=== PATIENT | female | born 1945 | race Two or more races ===

== ENCOUNTER 2017-01-14 20:36 | Inpatient (IN) | payer MEDICARE, OTHER ==
[~2017-01-14] VITALS: Ht 152.4 cm; Wt 69.4 kg
[~2017-01-14 20:36] MED LIST: ALLOPURINOL100 M1 ORAL; AMIODARONE HCL200 MG ORAL; ASPIR 8181 MG ORAL; FUROSEMIDE40 MG ORAL; METFORMIN HCL500 M1 ORAL; METOPROLOL TART25 MG ORAL
[2017-01-14] MEDS ORDERED: Nitroglycerin 2% oint pkt TOPIC ONE (21:00)
[2017-01-14] MEDS ORDERED: Vancomycin 1 GM in NS 275 ML IV ONE (21:15)
[2017-01-14] MEDS ORDERED: Cefepime HCl 1 GM in NS 55 ML IV SCH (21:15)
--- NOTE | 2017-01-14 21:29 | Emergency Room Report ---
History of Present Illness General Chief Complaint: Chest Pain Source: Patient Present Illness HPI Patient is a 71-year-old female presented after increased fever as well as chest discomfort. Patient had recently had a procedure done at [facility] for a cardiac cath. She reported some intervention done to her right groin. She reports having increased chest pain as well as palpitations. She reports having some shortness of breath. This had improved after oxygen with EMS. Allergies: Coded Allergies: No Known Allergies (Unverified , 01/14/17) Patient History Past Medical History: see triage record Last Menstrual Period: n/a Reviewed Nursing Documentation: PMH: Agreed, PSxH: Agreed Nursing Documentation-PMH Past Medical History: No Stated History Review of Systems All Other Systems: negative except mentioned in HPI Physical Exam Vital Signs Date Time Temp Pulse Resp B/P Pulse Ox O2 Delivery O2 Flow Rate FiO2 01/14/17 20:24 102.0 90 20 130/92 98 Non-Rebreather Sp02 EP Interpretation: reviewed, normal General Appearance: normal inspection, alert, GCS 15, mild distress Head: atraumatic ENT: normal ENT inspection, hearing grossly normal, normal voice Neck: normal inspection, full range of motion, supple, no bony tend Respiratory: normal inspection, lungs clear, normal breath sounds, no respiratory distress, no retraction, no wheezing Cardiovascular #1: regular rate, rhythm, no edema Gastrointestinal: normal inspection, normal bowel sounds, non tender, soft, no guarding, no hernia Genitourinary: no CVA tenderness Musculoskeletal: normal inspection, back normal, normal range of motion Neurologic: normal inspection, alert, oriented x3, responsive, information technology program manager III-XII nml as tested, speech normal Psychiatric: normal inspection, judgement/insight normal, mood/affect normal Skin: normal inspection, normal color, no rash Medical Decision Making Diagnostic Impression: Primary Impression: Febrile illness, acute Additional Impressions: Chest pain CHF (congestive heart failure) Atrial flutter UTI (urinary tract infection) ER Course Patient presented for fever. Differential diagnosis included but was not limited to acute coronary syndrome, pulmonary embolism, pneumonia, aortic dissection, shingles, pneumothorax, aortic dissection, esophageal rupture, pericarditis. Because of complexity of patient's case laboratory testing and imaging studies were ordered. The patient was noted to have a fever. She was started on IV antibiotics after culture pain. EKG interpreted by me showed atrial flutter with variable block with a rate of 104. The patient was given breathing treatment by EMS and was also given metoprolol for rate control. Patient was noted to have elevated BNP on testing. Initial troponin was negative. Patient was discussed with Dr. craig. I attempted to contact the patient's jalousie installer Dr. Malagon. Labs Test 01/14/17 21:50 01/14/17 21:55 White Blood Count 10.6 K/UL (4.8-10.8) Red Blood Count 4.24 M/UL (4.20-5.40) Hemoglobin 12.1 G/DL (12.0-16.0) Hematocrit 36.2 % (37.0-47.0) Mean Corpuscular Volume 85 FL (80-99) Mean Corpuscular Hemoglobin 28.5 PG (27.0-31.0) Mean Corpuscular Hemoglobin Concent 33.4 G/DL (32.0-36.0) Red Cell Distribution Width 13.4 % (11.6-14.8) Platelet Count 186 K/UL (150-450) Mean Platelet Volume 7.9 FL (6.5-10.1) Neutrophils (%) (Auto) 79.8 % (45.0-75.0) Lymphocytes (%) (Auto) 10.9 % (20.0-45.0) Monocytes (%) (Auto) 7.8 % (1.0-10.0) Eosinophils (%) (Auto) 0.7 % (0.0-3.0) Basophils (%) (Auto) 0.9 % (0.0-2.0) Sodium Level 131 mEQ/L (135-145) Potassium Level 4.6 mEQ/L (3.4-4.9) Chloride Level 96 mEQ/L (98-107) Carbon Dioxide Level 21 mEQ/L (20-30) Anion Gap 14 (5-15) Blood Urea Nitrogen 19 mg/dL (7-23) Creatinine 1.0 mg/dL (0.5-0.9) Estimat Glomerular Filtration Rate mL/min (>60) Glucose Level 124 mg/dL (74-106) Lactic Acid Level 1.20 mmol/L (0.66-2.22) Calcium Level 8.9 mg/dL (8.6-10.2) Total Bilirubin 0.8 mg/dL (0.0-1.2) Aspartate Amino Transf (AST/SGOT) 86 U/L (5-40) Alanine Aminotransferase (ALT/SGPT) 98 U/L (3-33) Alkaline Phosphatase 121 U/L (35-104) Total Creatine Kinase 38 U/L (26-140) Creatine Kinase MB < 1.5 ng/mL (< 3.8) Creatine Kinase MB Relative Index Troponin I < 0.30 ng/mL (<=0.30) Pro-B-Type Natriuretic Peptide 6286 pg/mL (0-125) Total Protein 6.4 g/dL (6.6-8.7) Albumin 3.7 g/dL (3.5-5.2) Globulin 2.7 g/dL Albumin/Globulin Ratio 1.3 (1.0-2.7) Urine Color Yellow Urine Appearance Clear Urine pH 6 (4.5-8.0) Urine Specific [place] 1.015 (1.005-1.035) Urine Protein 3+ (NEGATIVE) Urine Glucose (UA) Negative (NEGATIVE) Urine Ketones Negative (NEGATIVE) Urine Occult Blood 4+ (NEGATIVE) Urine Nitrite Negative (NEGATIVE) Urine Bilirubin Negative (NEGATIVE) Urine Urobilinogen Normal MG/DL (0.0-1.0) Urine Leukocyte Esterase 1+ (NEGATIVE) Urine RBC 10-15 /HPF (0 - 2) Urine WBC 5-10 /HPF (0 - 2) Urine Squamous Epithelial Cells Few /LPF (NONE/OCC) Urine Bacteria Moderate /HPF (NONE) Labs Test 01/14/17 21:50 EKG Diagnostic Results Rate: tachycardiac Rhythm: other - atrial flutter variable block Last Vital Signs Date Time Temp Pulse Resp B/P Pulse Ox O2 Delivery O2 Flow Rate FiO2 01/14/17 20:24 102.0 90 20 130/92 98 Non-Rebreather Status: unchanged Disposition: ADMITTED INPATIENT Condition: Abdifatah Childress Jan 14, 2017 21:29
[2017-01-14] MEDS ORDERED: Metoprolol 5mg/5ml Inj IVP SCH (21:30)
[2017-01-14 22:01] LABS: BASOPHILS % (AUTO) 0.9 % (0.0-2.0); EOSINOPHILS % (AUTO) 0.7 % (0.0-3.0); LYMPHOCYTES % (AUTO) 10.9 % (20.0-45.0); MEAN CORPUSCULAR HEMOGLOBIN 28.5 PG (27.0-31.0); MEAN CORPUSCULAR HGB CONC 33.4 G/DL (32.0-36.0); MEAN CORPUSCULAR VOLUME 85 FL (80-99); MEAN PLATELET VOLUME 7.9 FL (6.5-10.1); MONOCYTES % (AUTO) 7.8 % (1.0-10.0); NEUTROPHILS % (AUTO) 79.8 % (45.0-75.0); PLATELET COUNT 186 K/UL (150-450); RED BLOOD COUNT 4.24 M/UL (4.20-5.40); RED CELL DISTRIBUTION WIDTH 13.4 % (11.6-14.8); WHITE BLOOD COUNT 10.6 K/UL (4.8-10.8)
[2017-01-14 22:15] LABS: APPEARANCE,URINE CLEAR; KETONES,URINE NEGATIVE (NEGATIVE); LEUKOCYTE ESTERASE ,URINE 1+ (NEGATIVE); NITRITE,URINE NEGATIVE (NEGATIVE); PH,URINE 6 (4.5-8.0); PROTEIN,URINE 3+ (NEGATIVE); UROBILINOGEN,URINE NORMAL MG/DL (0.0-1.0)
[2017-01-14] MEDS ORDERED: Cefepime 1gm vial ONE (22:15)
[2017-01-14 22:25] LABS: TROPONIN I < 0.30 ng/mL (<=0.30)
[2017-01-14 22:29] LABS: ALANINE AMINOTRANSFERASE 98 U/L (3-33); ALBUMIN/GLOBULIN RATIO 1.3 (1.0-2.7); ANION GAP 14 (5-15); ASPARTATE AMINO TRANSFERASE 86 U/L (5-40); CALCIUM 8.9 mg/dL (8.6-10.2); CARBON DIOXIDE 21 mEQ/L (20-30); CHLORIDE 96 mEQ/L (98-107); HEMOLYSIS 6; POTASSIUM 4.6 mEQ/L (3.4-4.9); SODIUM 131 mEQ/L (135-145); TOTAL PROTEIN 6.4 g/dL (6.6-8.7)
[2017-01-14] MEDS ORDERED: Vancomycin 1gm inj IVPB ONE (22:32)
[2017-01-14 22:39] LABS: CKMB < 1.5 ng/mL (< 3.8)
[2017-01-14 22:51] LABS: BACTERIA,URINE MODERATE /HPF; SQUAMOUS EPITHELIAL CELL,UR FEW /LPF (NONE/OCC)
[2017-01-15] VITALS (8 sets, daily range): BP systolic 87–110; BP diastolic 46–70
[2017-01-15] MEDS ORDERED: ASPIR 8181 MG ORAL ×2 (03:29→07:13)
[2017-01-15] MEDS ORDERED: TEMAZEPAM15 MG ORAL (03:29)
[2017-01-15] MEDS ORDERED: ARMOUR THYROID30 M1 PO (03:29)
[2017-01-15] MEDS ORDERED: ALLOPURINOL100 M1 ORAL (03:29)
[2017-01-15] MEDS ORDERED: LYRICA75 M1 ORAL (03:29)
[2017-01-15] MEDS ORDERED: FERROUS SULFAT325 MG ORAL (03:29)
[2017-01-15] MEDS: NovoLOG Insulin Flexpen SUBQ SCH ×4 (06:30→20:44)
[2017-01-15] MEDS ORDERED: Acetaminophen 500mg (ES) tab ORAL PRN (08:00)
[2017-01-15 08:19] LABS: BASOPHILS % (AUTO) 0.9 % (0.0-2.0); EOSINOPHILS % (AUTO) 1.6 % (0.0-3.0); LYMPHOCYTES % (AUTO) 16.8 % (20.0-45.0); MEAN CORPUSCULAR HEMOGLOBIN 29.2 PG (27.0-31.0); MEAN CORPUSCULAR HGB CONC 33.8 G/DL (32.0-36.0); MEAN CORPUSCULAR VOLUME 86 FL (80-99); MEAN PLATELET VOLUME 7.8 FL (6.5-10.1); MONOCYTES % (AUTO) 11.2 % (1.0-10.0); NEUTROPHILS % (AUTO) 69.5 % (45.0-75.0); PLATELET COUNT 203 K/UL (150-450); RED BLOOD COUNT 3.87 M/UL (4.20-5.40); RED CELL DISTRIBUTION WIDTH 13.2 % (11.6-14.8); WHITE BLOOD COUNT 8.7 K/UL (4.8-10.8)
[2017-01-15 08:38] LABS: ALANINE AMINOTRANSFERASE 82 U/L (3-33); ALBUMIN/GLOBULIN RATIO 1.4 (1.0-2.7); ANION GAP 15 (5-15); ASPARTATE AMINO TRANSFERASE 51 U/L (5-40); CARBON DIOXIDE 25 mEQ/L (20-30); CHLORIDE 99 mEQ/L (98-107); CREATININE 1.2 mg/dL (0.5-0.9); HEMOLYSIS 4; POTASSIUM 3.5 mEQ/L (3.4-4.9); SODIUM 139 mEQ/L (135-145); TOTAL PROTEIN 6.3 g/dL (6.6-8.7)
[2017-01-15 08:52] LABS: BILIRUBIN,DIRECT 0.2 mg/dL (0.1-0.3)
[2017-01-15] MEDS ORDERED: Furosemide 40mg tab ORAL SCH (09:00)
[2017-01-15] MEDS ORDERED: Metoprolol 25mg tab ORAL SCH (09:00)
[2017-01-15] MEDS ORDERED: Allopurinol 100mg Tab ORAL SCH (09:00)
[2017-01-15] MEDS: Aspirin EC 81mg tab ORAL SCH ×2 (09:00→18:00)
[2017-01-15] MEDS: Amiodarone 200mg tab ORAL SCH (09:02)
[2017-01-15] MEDS: Heparin 5000 units/ml inj SUBQ SCH ×3 (09:04→20:56)
--- NOTE | 2017-01-15 11:31 | Diagnostic Imaging Report ---
Indication: Dyspnea Comparison: 09/18/12 A single view chest radiograph was obtained. Findings: Interstitial edema is suspected with blunting of the right costophrenic angle. The heart is enlarged. Bones are slightly osteopenic in appearance. Impression: Evidence of mild interstitial edema. Suspected small right pleural effusion
--- NOTE | 2017-01-15 11:54 | Consultation ---
Consult Note Consult Note ID DIC # [id number] SOFIE MORELAND M.D. Jan 15, 2017 11:54
--- NOTE | 2017-01-15 14:15 | History and Physical ---
History of Present Illness General Date patient seen: Jan 15, 2017 Reason for Hospitalization: Chest Pain Present Illness HPI 71 year old female with hx of childhood rheumatic fever and mitral insufficiency with recent clipping of mitral valve at , hx of smoking, DM and hypothyroid, presented to [facility] with CC of fever, cough, dyspnea, and thick phlegm. C/O chest pain and tightness Allergies: Coded Allergies: No Known Allergies (Unverified , 01/14/17) Medication History Scheduled Allopurinol* (Allopurinol*), 100 MG ORAL THREE TIMES A WEEK, (Reported) Amiodarone Hcl* (Cordarone*), 200 MG ORAL DAILY, (Reported) Aspirin* (Aspir 81*), 81 MG ORAL TWICE A WEEK, (Reported) Ferrous Sulfate* (Ferrous Sulfate*), 325 MG ORAL DAILY, (Reported) Furosemide* (Lasix*), 40 MG ORAL TWICE A DAY, (Reported) Metformin Hcl* (Metformin Hcl*), 500 MG ORAL TWICE A DAY, (Reported) Metoprolol Tartrate* (Metoprolol Tartrate*), 25 MG ORAL EVERY 12 HOURS, ( Reported) Pregabalin* (Lyrica*), 75 MG ORAL QHS, (Reported) Temazepam (Temazepam*), 15 MG ORAL BEDTIME, (Reported) Thyroid,Pork ([place] Thyroid), 45 MG PO DAILY, (Reported) Discontinued Medications Allopurinol* (Allopurinol*), 100 MG ORAL DAILY, (Reported) Discontinued Reason: Medication dose changed Aspirin* (Aspir 81*), 81 MG ORAL DAILY, (Reported) Discontinued Reason: Medication dose changed Aspirin* (Aspir 81*), 81 MG ORAL TWICE A DAY, (Reported) Discontinued Reason: Medication dose changed Patient History Healthcare decision maker Resuscitation status Full Code Advanced Directive on File Past Medical/Surgical History Past Medical/Surgical History: (1) Rheumatic mitral insufficiency (2) Hypothyroidism (3) Diabetes mellitus (4) Atrial flutter (5) CHF (congestive heart failure) Review of Systems All Other Systems: negative except mentioned in HPI Physical Exam General Appearance: WD/WN Lines, tubes and drains: peripheral HEENT: normocephalic, atraumatic Neck: non-tender, normal alignment Respiratory/Chest: chest wall non-tender, lungs clear Breasts: no masses Cardiovascular/Chest: normal peripheral pulses Genitourinary/Rectal: normal genital exam Extremities: normal range of motion, non-tender Skin Exam: normal pigmentation Neurologic: electronic commerce specialist II-XII grossly normal Last 24 Hour Vital Signs Date Time Temp Pulse Resp B/P Pulse Ox O2 Delivery O2 Flow Rate FiO2 01/15/17 12:00 95 01/15/17 11:26 96.9 89 18 92/54 99 Nasal Cannula 2.0 01/15/17 09:00 61 87/52 01/15/17 08:00 79 01/15/17 07:45 97.7 74 18 87/52 99 Room Air 01/15/17 04:00 86 01/15/17 03:53 98.6 102 18 103/62 95 Nasal Cannula 01/15/17 02:39 97.0 66 18 98/53 95 Nasal Cannula 01/15/17 02:30 97.0 01/15/17 01:34 Nasal Cannula 2.0 01/15/17 01:31 99.0 84 21 100/52 97 2.0 01/15/17 00:14 98.0 87 110/70 97 Nasal Cannula 2.0 01/14/17 21:00 110/87 01/14/17 20:24 102.0 90 20 130/92 98 Non-Rebreather Intake and Output 01/14/17 01/15/17 19:00 07:00 Intake Total 585 ml Balance 585 ml Intake Oral 200 ml IV Total 385 ml Laboratory Tests Test 01/14/17 21:50 01/14/17 21:55 01/15/17 07:25 White Blood Count 10.6 K/UL (4.8-10.8) 8.7 K/UL (4.8-10.8) Red Blood Count 4.24 M/UL (4.20-5.40) 3.87 M/UL (4.20-5.40) L Hemoglobin 12.1 G/DL (12.0-16.0) 11.3 G/DL (12.0-16.0) L Hematocrit 36.2 % (37.0-47.0) L 33.4 % (37.0-47.0) L Mean Corpuscular Volume 85 FL (80-99) 86 FL (80-99) Mean Corpuscular Hemoglobin 28.5 PG (27.0-31.0) 29.2 PG (27.0-31.0) Mean Corpuscular Hemoglobin Concent 33.4 G/DL (32.0-36.0) 33.8 G/DL (32.0-36.0) Red Cell Distribution Width 13.4 % (11.6-14.8) 13.2 % (11.6-14.8) Platelet Count 186 K/UL (150-450) 203 K/UL (150-450) Mean Platelet Volume 7.9 FL (6.5-10.1) 7.8 FL (6.5-10.1) Neutrophils (%) (Auto) 79.8 % (45.0-75.0) H 69.5 % (45.0-75.0) Lymphocytes (%) (Auto) 10.9 % (20.0-45.0) L 16.8 % (20.0-45.0) L Monocytes (%) (Auto) 7.8 % (1.0-10.0) 11.2 % (1.0-10.0) H Eosinophils (%) (Auto) 0.7 % (0.0-3.0) 1.6 % (0.0-3.0) Basophils (%) (Auto) 0.9 % (0.0-2.0) 0.9 % (0.0-2.0) Sodium Level 131 mEQ/L (135-145) L 139 mEQ/L (135-145) Potassium Level 4.6 mEQ/L (3.4-4.9) 3.5 mEQ/L (3.4-4.9) Chloride Level 96 mEQ/L (98-107) L 99 mEQ/L (98-107) Carbon Dioxide Level 21 mEQ/L (20-30) 25 mEQ/L (20-30) Anion Gap 14 (5-15) 15 (5-15) Blood Urea Nitrogen 19 mg/dL (7-23) 24 mg/dL (7-23) H Creatinine 1.0 mg/dL (0.5-0.9) H 1.2 mg/dL (0.5-0.9) H Estimat Glomerular Filtration Rate mL/min (>60) mL/min (>60) Glucose Level 124 mg/dL (74-106) H 129 mg/dL (74-106) H Lactic Acid Level 1.20 mmol/L (0.66-2.22) Calcium Level 8.9 mg/dL (8.6-10.2) 9.0 mg/dL (8.6-10.2) Total Bilirubin 0.8 mg/dL (0.0-1.2) 1.1 mg/dL (0.0-1.2) Aspartate Amino Transf (AST/SGOT) 86 U/L (5-40) H 51 U/L (5-40) H Alanine Aminotransferase (ALT/SGPT) 98 U/L (3-33) H 82 U/L (3-33) H Alkaline Phosphatase 121 U/L (35-104) H 102 U/L (35-104) Total Creatine Kinase 38 U/L (26-140) Creatine Kinase MB < 1.5 ng/mL (< 3.8) Creatine Kinase MB Relative Index Troponin I < 0.30 ng/mL (<=0.30) Pro-B-Type Natriuretic Peptide 6286 pg/mL (0-125) H 6162 pg/mL (0-125) H Total Protein 6.4 g/dL (6.6-8.7) L 6.3 g/dL (6.6-8.7) L Albumin 3.7 g/dL (3.5-5.2) 3.7 g/dL (3.5-5.2) Globulin 2.7 g/dL 2.6 g/dL Albumin/Globulin Ratio 1.3 (1.0-2.7) 1.4 (1.0-2.7) Urine Color Yellow Urine Appearance Clear Urine pH 6 (4.5-8.0) Urine Specific [place] 1.015 (1.005-1.035) Urine Protein 3+ (NEGATIVE) H Urine Glucose (UA) Negative (NEGATIVE) Urine Ketones Negative (NEGATIVE) Urine Occult Blood 4+ (NEGATIVE) H Urine Nitrite Negative (NEGATIVE) Urine Bilirubin Negative (NEGATIVE) Urine Urobilinogen Normal MG/DL (0.0-1.0) Urine Leukocyte Esterase 1+ (NEGATIVE) H Urine RBC 10-15 /HPF (0 - 2) H Urine WBC 5-10 /HPF (0 - 2) H Urine Squamous Epithelial Cells Few /LPF (NONE/OCC) Urine Bacteria Moderate /HPF (NONE) H Direct Bilirubin 0.2 mg/dL (0.1-0.3) Microbiology Date/Time Source Procedure Growth Status 01/14/17 21:55 Urine,Clean Catch Urine Culture - Preliminary Resulted Height (Feet): 5 Height (Inches): 0.00 Weight (Pounds): 153 Medications Current Medications Medications (Trade) Dose Ordered Sig/Jaz Route PRN Reason Start Time Stop Time Status Last Admin Dose Admin Acetaminophen (Tylenol) 500 mg Q4H PRN ORAL Mild Pain/Temp > 100.5 01/15/17 08:00 02/14/17 07:59 Allopurinol (Zyloprim) 100 mg THREE TIMES A WEEK ORAL 01/16/17 09:00 02/15/17 08:59 Amiodarone HCl (Cordarone) 200 mg DAILY ORAL 01/15/17 09:00 02/14/17 08:59 01/15/17 09:02 Aspirin (Ecotrin) 81 mg TWICE A DAY ORAL 01/15/17 09:00 02/14/17 08:59 Cefepime HCl/ Dextrose (Maxipime/D5W) 110 ml @ 220 mls/hr Q24H IVPB 01/15/17 15:00 01/22/17 14:59 Dextrose (Dextrose 50%) STAT PRN IV Hypoglycemia 01/14/17 23:30 02/13/17 23:29 Furosemide 100 mg/ Dextrose 110 ml @ 11 mls/hr Q10H IV 01/15/17 19:00 02/14/17 18:59 Heparin Sodium (Porcine) (Heparin 5000 units/ml) 5,000 units EVERY 12 HOURS SUBQ 01/15/17 09:00 02/14/17 08:59 01/15/17 09:04 Insulin Aspart (NovoLOG) BEFORE MEALS AND HS SUBQ 01/15/17 06:30 02/14/17 06:29 Metoprolol Tartrate (Lopressor) 25 mg EVERY 12 HOURS ORAL 01/15/17 09:00 02/14/17 08:59 Pregabalin (Lyrica) 75 mg QHS ORAL 01/15/17 21:00 02/14/17 20:59 Temazepam (Restoril) 15 mg BEDTIME ORAL 01/15/17 21:00 01/22/17 20:59 Thyroid 45 mg 45 mg DAILY@1200 ORAL 01/15/17 12:00 02/14/17 11:59 01/15/17 12:01 Vancomycin HCl 1 ea 1 ea DAILY PRN MISC Per rx protocol 01/15/17 12:00 02/14/17 11:59 Vancomycin HCl/ Dextrose (Vancomycin/D5W) 275 ml @ 183.708 mls/hr Q24H IVPB 01/15/17 21:00 01/20/17 20:59 Assessment/Plan Problem List: (1) Pneumonia ICD Codes: J18.9 - Pneumonia, unspecified organism SNOMED: 335085387 (2) Atrial flutter ICD Codes: I48.92 - Unspecified atrial flutter SNOMED: 2194186 (3) Hypothyroidism ICD Codes: E03.9 - Hypothyroidism, unspecified SNOMED: 96193694 (4) Diabetes mellitus ICD Codes: E11.9 - Type 2 diabetes mellitus without complications SNOMED: 87016963 (5) Rheumatic mitral insufficiency ICD Codes: I05.1 - Rheumatic mitral insufficiency SNOMED: 09632593 Assessment/Plan iv abx check sputum check echo heart rate controlled, Anticoagulation? sliding scale diabetic diet MICHAEL GARCIA Jan 15, 2017 14:15
--- NOTE | 2017-01-15 14:33 | Diagnostic Imaging Report ---
Indication: Dyspnea Comparison: 01/14/2017 A single view chest radiograph was obtained. Findings: Some interstitial opacities are to present but there is probable improvement. There is suspicion of a small right pleural effusion again noted. Heart is enlarged. Impression: Probable mild interstitial edema. Probable improvement since the last day
[2017-01-15] MEDS: Cefepime HCl 2 GM in D5W 110 ML IVPB SCH (15:35)
--- NOTE | 2017-01-15 17:56 | Cardiology Progress Note ---
Assessment/Plan Assessment/Plan chf acute sytolic afib recurrent s/p cardioversion at [facility] his of haseeb cm resolved MR now s/p darell clip recently dm hyperlipidemia fever at admission uti no obstructive diseas on cath in 11/2016 was in afib at dc form [facility] now in afib need continue diuretics resusm xarelto that she was taking before more time on amiod and subsequently reattempt at cardioversion in future however ia am highly doubtful that she may remain n sinus so rate control for sure should be attempted need iv abx per id await blood cx [id number] Objective Last 24 Hour Vital Signs Date Time Temp Pulse Resp B/P Pulse Ox O2 Delivery O2 Flow Rate FiO2 01/15/17 16:00 97 01/15/17 15:26 97.3 97 18 92/46 99 Nasal Cannula 2.0 01/15/17 12:00 95 01/15/17 11:26 96.9 89 18 92/54 99 Nasal Cannula 2.0 01/15/17 09:00 61 87/52 01/15/17 08:00 79 01/15/17 07:45 97.7 74 18 87/52 99 Room Air 01/15/17 04:00 86 01/15/17 03:53 98.6 102 18 103/62 95 Nasal Cannula 01/15/17 02:39 97.0 66 18 98/53 95 Nasal Cannula 01/15/17 02:30 97.0 01/15/17 01:34 Nasal Cannula 2.0 01/15/17 01:31 99.0 84 21 100/52 97 2.0 01/15/17 00:14 98.0 87 110/70 97 Nasal Cannula 2.0 01/14/17 21:00 110/87 01/14/17 20:24 102.0 90 20 130/92 98 Non-Rebreather Intake and Output 01/14/17 01/15/17 19:00 07:00 Intake Total 585 ml Balance 585 ml Intake Oral 200 ml IV Total 385 ml Laboratory Tests Test 01/14/17 21:50 01/14/17 21:55 01/15/17 07:25 White Blood Count 10.6 K/UL (4.8-10.8) 8.7 K/UL (4.8-10.8) Red Blood Count 4.24 M/UL (4.20-5.40) 3.87 M/UL (4.20-5.40) L Hemoglobin 12.1 G/DL (12.0-16.0) 11.3 G/DL (12.0-16.0) L Hematocrit 36.2 % (37.0-47.0) L 33.4 % (37.0-47.0) L Mean Corpuscular Volume 85 FL (80-99) 86 FL (80-99) Mean Corpuscular Hemoglobin 28.5 PG (27.0-31.0) 29.2 PG (27.0-31.0) Mean Corpuscular Hemoglobin Concent 33.4 G/DL (32.0-36.0) 33.8 G/DL (32.0-36.0) Red Cell Distribution Width 13.4 % (11.6-14.8) 13.2 % (11.6-14.8) Platelet Count 186 K/UL (150-450) 203 K/UL (150-450) Mean Platelet Volume 7.9 FL (6.5-10.1) 7.8 FL (6.5-10.1) Neutrophils (%) (Auto) 79.8 % (45.0-75.0) H 69.5 % (45.0-75.0) Lymphocytes (%) (Auto) 10.9 % (20.0-45.0) L 16.8 % (20.0-45.0) L Monocytes (%) (Auto) 7.8 % (1.0-10.0) 11.2 % (1.0-10.0) H Eosinophils (%) (Auto) 0.7 % (0.0-3.0) 1.6 % (0.0-3.0) Basophils (%) (Auto) 0.9 % (0.0-2.0) 0.9 % (0.0-2.0) Sodium Level 131 mEQ/L (135-145) L 139 mEQ/L (135-145) Potassium Level 4.6 mEQ/L (3.4-4.9) 3.5 mEQ/L (3.4-4.9) Chloride Level 96 mEQ/L (98-107) L 99 mEQ/L (98-107) Carbon Dioxide Level 21 mEQ/L (20-30) 25 mEQ/L (20-30) Anion Gap 14 (5-15) 15 (5-15) Blood Urea Nitrogen 19 mg/dL (7-23) 24 mg/dL (7-23) H Creatinine 1.0 mg/dL (0.5-0.9) H 1.2 mg/dL (0.5-0.9) H Estimat Glomerular Filtration Rate mL/min (>60) mL/min (>60) Glucose Level 124 mg/dL (74-106) H 129 mg/dL (74-106) H Lactic Acid Level 1.20 mmol/L (0.66-2.22) Calcium Level 8.9 mg/dL (8.6-10.2) 9.0 mg/dL (8.6-10.2) Total Bilirubin 0.8 mg/dL (0.0-1.2) 1.1 mg/dL (0.0-1.2) Aspartate Amino Transf (AST/SGOT) 86 U/L (5-40) H 51 U/L (5-40) H Alanine Aminotransferase (ALT/SGPT) 98 U/L (3-33) H 82 U/L (3-33) H Alkaline Phosphatase 121 U/L (35-104) H 102 U/L (35-104) Total Creatine Kinase 38 U/L (26-140) Creatine Kinase MB < 1.5 ng/mL (< 3.8) Creatine Kinase MB Relative Index Troponin I < 0.30 ng/mL (<=0.30) Pro-B-Type Natriuretic Peptide 6286 pg/mL (0-125) H 6162 pg/mL (0-125) H Total Protein 6.4 g/dL (6.6-8.7) L 6.3 g/dL (6.6-8.7) L Albumin 3.7 g/dL (3.5-5.2) 3.7 g/dL (3.5-5.2) Globulin 2.7 g/dL 2.6 g/dL Albumin/Globulin Ratio 1.3 (1.0-2.7) 1.4 (1.0-2.7) Urine Color Yellow Urine Appearance Clear Urine pH 6 (4.5-8.0) Urine Specific [place] 1.015 (1.005-1.035) Urine Protein 3+ (NEGATIVE) H Urine Glucose (UA) Negative (NEGATIVE) Urine Ketones Negative (NEGATIVE) Urine Occult Blood 4+ (NEGATIVE) H Urine Nitrite Negative (NEGATIVE) Urine Bilirubin Negative (NEGATIVE) Urine Urobilinogen Normal MG/DL (0.0-1.0) Urine Leukocyte Esterase 1+ (NEGATIVE) H Urine RBC 10-15 /HPF (0 - 2) H Urine WBC 5-10 /HPF (0 - 2) H Urine Squamous Epithelial Cells Few /LPF (NONE/OCC) Urine Bacteria Moderate /HPF (NONE) H Direct Bilirubin 0.2 mg/dL (0.1-0.3) Microbiology Date/Time Source Procedure Growth Status 01/14/17 21:55 Urine,Clean Catch Urine Culture - Preliminary Resulted ASHWINI WOODS Jan 15, 2017 17:56
--- NOTE | 2017-01-15 18:00 | Consultation ---
DATE OF CONSULTATION: INFECTIOUS DISEASE CONSULTATION CONSULTING PHYSICIAN: Teo Schuler M.D. REFERRING PHYSICIAN: Ruddy Thomas M.D. REASON FOR CONSULTATION: Evaluation of the patient for fever, pneumonia, antibiotic management. HISTORY OF PRESENT ILLNESS: The patient is a 71-year-old female with multiple medical problems who underwent a cardiac cath procedure in the [facility] and subsequently the patient underwent a valve repair procedure (the patient does not remember the exact nature of the procedure, however, she contributes to repair of the mitral valve). The patient was admitted to this medical center with fever, shortness of breath and cough. Infectious Disease consultation has been requested for further evaluation of the patient's antibiotic management. PAST MEDICAL HISTORY: 1. History of atrial flutter. 2. History of CHF. 3. Hypertension. 4. History of breast reduction surgery. 5. Gout. 6. Borderline diabetes. 7. Hypothyroidism. 8. Depression. 9. Anemia. 10. Status post cardiac cath and valve repair procedure at [facility] ten days prior to admission. MEDICATIONS: The patient received one dose of vancomycin and cefepime in the emergency room. ALLERGIES: No known drug allergies. SOCIAL HISTORY: Negative for alcohol, drug abuse or smoking. FAMILY HISTORY: Noncontributing. REVIEW OF SYSTEMS: HEENT: No recent change in vision or hearing. Pulmonary: As mentioned above. Cardiovascular: As mentioned above. Gastrointestinal/Abdomen: No nausea or vomiting. Genitourinary: No dysuria. Musculoskeletal: No pain in extremities. PHYSICAL EXAMINATION: VITAL SIGNS: Temperature 102 degrees, pulse 86, respiratory rate 18 and blood pressure 192/54. HEENT: Mild pale conjunctivae. No icterus. NECK: No lymphadenopathy. CHEST: Coarse breathing sounds. HEART: S1 and S2. ABDOMEN: Soft and nontender. EXTREMITIES: No cyanosis. NEUROLOGIC: Awake. LABORATORY AND DIAGNOSTIC DATA: White blood cell 8.7, hemoglobin 11.2 and platelet 203,000. Urinalysis shows 5-10 white blood cells. AST and ALT mildly elevated. Alkaline phosphatase within normal range. BNP over 6000. Cardiac enzyme unremarkable. Chest x-ray showed mild interstitial edema. ASSESSMENT: The patient is a 71-year-old female who has been recently hospitalized in the hospital and has multiple medical problems, who came with 1. Fever. 2. Cough. 3. Shortness of breath. 4. History of healthcare associated pneumonia. 5. Rule out bacteremia. PLAN: 1. We will continue the patient on vancomycin and cefepime. 2. Monitor blood culture. 3. Monitor sputum and urine culture. 4. Monitor chest x-ray. 5. Monitor liver function tests. 6. Based on the patient's clinical course and labs, we will do further recommendation. Thank you, Dr. Thomas, for allowing me to participate in the care of this patient. I will follow the patient with you during this hospitalization. Teo Schuler M.D. DR: SUMEET JOB#: [id number] CC:
[2017-01-15] MEDS: Metoprolol 25mg tab ORAL SCH (20:41)
[2017-01-15] MEDS: Lyrica 75mg cap ORAL SCH (20:42)
[2017-01-15] MEDS: Xarelto 10mg tab ORAL SCH (20:57)
[2017-01-15] MEDS: Vancomycin 750mg/D5W 275ml IVPB SCH ×2 (21:59)
[2017-01-16] VITALS: BP 115/55
--- NOTE | 2017-01-16 01:00 | Consultation ---
DATE OF CONSULTATION: 01/15/2017 CARDIOLOGY CONSULTATION CONSULTING PHYSICIAN: Vin Nova M.D. REFERRING PHYSICIAN: Ruddy Thomas M.D. REASON FOR REFERRAL: Congestive heart failure. HISTORY OF PRESENT ILLNESS: This is an elderly female who has had history of mitral regurgitation. Apparently, she has undergone a mitral clip as well as a direct current cardioversion recently at [facility] and was subsequently discharged home after urgently had been admitted with failed medical treatment. She was discharged last Saturday. She did well for few days, was told not to take one of the medications that she was taking before, not clear which one that was as of last Saturday, and a few days later as of this past Saturday, she started getting more shortness of breath and dyspnea on exertion and eventually was not able to sleep because of shortness of air, even had to sit up to be able to breathe at night. She really has not had any chest pain. She has occasional palpitations, for which she has been admitted to the hospital. Apparently, she was brought here to the emergency department at [facility] with diagnosis and has been admitted to the hospital and has received some diuretics, to which she has responded. PAST MEDICAL HISTORY: History of rheumatic heart disease with sleep apnea, atrial fibrillation, hypothyroid, anxiety, nonischemic cardiomyopathy with ejection fraction of 40% cardiomyopathy. This revealed mitral regurgitation, chronic systolic and diastolic heart failure, and pulmonary edema with restricted coarctation of posterior mitral valve leaflet that has subsequently been corrected. She has diabetes. She has had low blood pressure before. No history of heart attack. No cancer. No stroke. No hepatitis or tuberculosis. No asthma or emphysema. No ulcers. No kidney problems, liver problems, or thyroid problems noted. The discharge diagnoses indicated that the patient has a history of borderline diabetes, lumbar stenosis, and hyperlipidemia, but she underwent a cardiac catheterization recently at [facility] in November that showed no evidence of coronary disease. ALLERGIES: She is not allergic to any medications. SOCIAL HISTORY: She used to smoke. She quit that approximately 16 years ago. Does not drink alcoholic beverages. Lives at home by herself. REVIEW OF SYSTEMS: Gastrointestinal: She has had some bouts of nausea and vomiting that resolved. Genitourinary: Negative. Pulmonary: Cough and wheezing. Constitutional: Negative. Neurologic: Negative. PHYSICAL EXAMINATION: GENERAL: Shows to be an elderly female in no apparent respiratory distress, but she looks comfortable. NECK: Supple. No jugular venous distention. She has crackles at the left base. CARDIAC: Irregularly irregular. No heaves, thrills, or gallops noted. ABDOMEN: Soft and nontender. Positive bowel sounds. EXTREMITIES: There is no clubbing, cyanosis, nor is there any edema. LABORATORY AND DIAGNOSTIC DATA: Her last EKG at [facility] on 12/29/2016 showed sinus rhythm with T-wave inversions in aVL and flat T-waves in lead I. EKG at the present time shows atrial fibrillation and ventricular response of 104. Her blood tests, white count 8.7, hemoglobin 11.3, and platelet count of 203,000. Sodium is 139, potassium 3.5, chloride 99, bicarbonate 25, BUN of 24, creatinine 1.2, and glucose of 129. Lactic acid 1.2. AST and ALT are 51 and 82. ProBNP is 6100. Troponin less than 0.03. Urinalysis shows 10 to 15 RBC, 5 to 10 WBCs. A chest x-ray performed yesterday shows mild interstitial edema and right pleural effusion, small. Repeat EKG shows probable mild since the last day. ASSESSMENT: 1. Congestive heart failure. 2. Mitral regurgitation, status post mitral clip. 3. Atrial fibrillation, recurrent. 4. Pleural effusion. 5. Rheumatic heart disease history. 6. Borderline diabetes. PLAN: Dr. Thomas, this patient was seen in cardiac consultation. The patient's atrial fibrillation is not significantly rapid. Nevertheless, she has had some diuretics to which she has responded. Of note, it appears that the patient is being maintained on amiodarone therapy and beta-blockers at home and it does not appear that she has received any diuretics at the hospital at [facility]. I think she should be continued back on diuretics. At the present time, she should be on anticoagulation for stroke prevention. She had been on Xarelto before that will be continued until she is followed up by Dr. Malagon. Because of her recurrence of her atrial fibrillation despite the recent cardioversion, I think that she may be better off having longer period of time on amiodarone prior to repeat attempt at cardioversion and she may in fact flip back on her own once she is treated for heart failure. I will follow the patient here and recommend further treatment as necessary. An echocardiogram should be performed if not done so for evaluation of her LV function as that had improved previously. Vin Nova M.D. DR: DERRICK JOB#: [id number] CC:
[2017-01-16] MEDS: NovoLOG Insulin Flexpen SUBQ SCH ×4 (06:30→21:32)
[2017-01-16 08:00] VITALS: BP 86/48
[2017-01-16 08:26] LABS: BASOPHILS % (AUTO) 0.9 % (0.0-2.0); EOSINOPHILS % (AUTO) 7.4 % (0.0-3.0); LYMPHOCYTES % (AUTO) 16.8 % (20.0-45.0); MEAN CORPUSCULAR HGB CONC 33.5 G/DL (32.0-36.0); MEAN CORPUSCULAR VOLUME 87 FL (80-99); MEAN PLATELET VOLUME 7.4 FL (6.5-10.1); MONOCYTES % (AUTO) 11.2 % (1.0-10.0); NEUTROPHILS % (AUTO) 63.7 % (45.0-75.0); PLATELET COUNT 208 K/UL (150-450); RED BLOOD COUNT 4.08 M/UL (4.20-5.40); RED CELL DISTRIBUTION WIDTH 13.7 % (11.6-14.8); WHITE BLOOD COUNT 6.7 K/UL (4.8-10.8)
[2017-01-16 08:49] LABS: ANION GAP 14 (5-15); CALCIUM 9.2 mg/dL (8.6-10.2); CARBON DIOXIDE 29 mEQ/L (20-30); CHLORIDE 94 mEQ/L (98-107); CREATININE 1.3 mg/dL (0.5-0.9); HEMOLYSIS 1; SODIUM 137 mEQ/L (135-145)
[2017-01-16] MEDS: Metoprolol 25mg tab ORAL SCH ×2 (09:00→23:21)
[2017-01-16] MEDS: Amiodarone 200mg tab ORAL SCH (09:00)
[2017-01-16] MEDS ORDERED: Allopurinol 100mg Tab ORAL SCH (09:00)
[2017-01-16 09:04] LABS: POTASSIUM 2.7 mEQ/L (3.4-4.9)
[2017-01-16] MEDS: Xarelto 10mg tab ORAL SCH (10:23)
[2017-01-16] MEDS: Aspirin EC 81mg tab ORAL SCH ×2 (10:23→18:28)
[2017-01-16] MEDS: Heparin 5000 units/ml inj SUBQ SCH ×2 (10:32→21:31)
[2017-01-16 12:00] VITALS: BP 91/56
--- NOTE | 2017-01-16 14:00 | Pulmonology Progress Note ---
Assessment/Plan Problems: (1) Pneumonia (2) Atrial flutter (3) Hypothyroidism (4) Diabetes mellitus (5) Rheumatic mitral insufficiency Assessment/Plan afebrile continue abx dc lasix, bun/creatinine rising, BNP decreased by half echo report pending heart rate controlled. f/u by cardiolgoy Subjective ROS Limited/Unobtainable: No Interval Events: less cough Allergies: Coded Allergies: No Known Allergies (Unverified , 01/14/17) Objective Last 24 Hour Vital Signs Date Time Temp Pulse Resp B/P Pulse Ox O2 Delivery O2 Flow Rate FiO2 01/16/17 12:00 91 01/16/17 12:00 97.3 70 21 91/56 95 Nasal Cannula 2.0 01/16/17 09:00 65 88/45 01/16/17 08:00 97.2 77 21 86/48 98 Nasal Cannula 2.0 01/16/17 04:33 90 01/16/17 00:00 98.1 74 20 115/55 Room Air 01/15/17 20:41 82 100/57 01/15/17 20:00 98.4 87 22 100/52 99 Room Air 01/15/17 20:00 97 01/15/17 16:00 97 01/15/17 15:26 97.3 97 18 92/46 99 Nasal Cannula 2.0 Intake and Output 01/15/17 01/16/17 19:00 07:00 Intake Total 571 ml 396.000 ml Output Total 900 ml Balance 571 ml -504.000 ml Intake Oral 560 ml IV Total 11 ml 396.000 ml Output Urine Total 900 ml # Voids 4 3 General Appearance: WD/WN HEENT: normocephalic, anicteric Respiratory/Chest: chest wall non-tender, normal breath sounds Cardiovascular: normal peripheral pulses, normal rate Abdomen: normal bowel sounds, soft, non tender Genitourinary: normal external genitalia Extremities: no cyanosis Skin: no rash, no lesions Microbiology Date/Time Source Procedure Growth Status 01/14/17 22:00 Blood Blood Culture - Preliminary NO GROWTH AFTER 24 HOURS Resulted 01/14/17 21:50 Blood Blood Culture - Preliminary NO GROWTH AFTER 24 HOURS Resulted 01/15/17 14:00 Sputum Gram Stain - Final Resulted 01/15/17 14:00 Sputum Sputum Culture - Preliminary NO GROWTH AFTER 24 HOURS Resulted 01/14/17 21:55 Urine,Clean Catch Urine Culture - Preliminary Gram Negative Bacillus 1 Resulted Laboratory Tests 01/16/17 07:30: White Blood Count 6.7, Red Blood Count 4.08L, Hemoglobin 11.8L, Hematocrit 35.3L , Mean Corpuscular Volume 87, Mean Corpuscular Hemoglobin 29.0, Mean Corpuscular Hemoglobin Concent 33.5, Red Cell Distribution Width 13.7, Platelet Count 208, Mean Platelet Volume 7.4, Neutrophils (%) (Auto) 63.7, Lymphocytes (% ) (Auto) 16.8L, Monocytes (%) (Auto) 11.2H, Eosinophils (%) (Auto) 7.4H, Basophils (%) (Auto) 0.9, Sodium Level 137, Potassium Level 2.7*L, Chloride Level 94L, Carbon Dioxide Level 29, Anion Gap 14, Blood Urea Nitrogen 29H, Creatinine 1.3H, Estimat Glomerular Filtration Rate , Glucose Level 93, Calcium Level 9.2, Pro-B-Type Natriuretic Peptide 3110H Current Medications Medications (Trade) Dose Ordered Sig/Jaz Route PRN Reason Start Time Stop Time Status Last Admin Dose Admin Acetaminophen (Tylenol) 500 mg Q4H PRN ORAL Mild Pain/Temp > 100.5 01/15/17 08:00 02/14/17 07:59 Allopurinol (Zyloprim) 100 mg THREE TIMES A WEEK ORAL 01/16/17 09:00 02/15/17 08:59 01/16/17 10:23 Amiodarone HCl (Cordarone) 200 mg DAILY ORAL 01/15/17 09:00 02/14/17 08:59 01/15/17 09:02 Aspirin (Ecotrin) 81 mg TWICE A DAY ORAL 01/15/17 09:00 02/14/17 08:59 01/16/17 10:23 Cefepime HCl/ Dextrose (Maxipime/D5W) 110 ml @ 220 mls/hr Q24H IVPB 01/15/17 15:00 01/22/17 14:59 01/15/17 15:35 Dextrose (Dextrose 50%) STAT PRN IV Hypoglycemia 01/14/17 23:30 02/13/17 23:29 Furosemide 100 mg/ Dextrose 110 ml @ 11 mls/hr Q10H IV 01/15/17 19:00 02/14/17 18:59 01/16/17 05:03 Heparin Sodium (Porcine) (Heparin 5000 units/ml) 5,000 units EVERY 12 HOURS SUBQ 01/15/17 09:00 02/14/17 08:59 01/16/17 10:32 Insulin Aspart (NovoLOG) BEFORE MEALS AND HS SUBQ 01/15/17 06:30 02/14/17 06:29 01/15/17 20:44 Metoprolol Tartrate (Lopressor) 50 mg EVERY 12 HOURS ORAL 01/15/17 21:00 02/14/17 20:59 01/15/17 20:41 Pregabalin (Lyrica) 75 mg QHS ORAL 01/15/17 21:00 02/14/17 20:59 01/15/17 20:42 Rivaroxaban (Xarelto) 20 mg DAILY ORAL 01/15/17 19:30 02/14/17 19:29 01/16/17 10:23 Temazepam (Restoril) 15 mg BEDTIME ORAL 01/15/17 21:00 01/22/17 20:59 01/15/17 20:41 Thyroid 45 mg 45 mg DAILY@1200 ORAL 01/15/17 12:00 02/14/17 11:59 01/16/17 12:58 Vancomycin HCl 1 ea 1 ea DAILY PRN MISC Per rx protocol 01/15/17 12:00 02/14/17 11:59 Vancomycin HCl/ Dextrose (Vancomycin/D5W) 275 ml @ 183.708 mls/hr Q24H IVPB 01/15/17 21:00 01/20/17 20:59 01/15/17 21:59 MICHAEL GARCIA Jan 16, 2017 14:00
[2017-01-16] MEDS ORDERED: KCl 10% 40mEq/30ml liquid ORAL ONE (15:10)
[2017-01-16] MEDS: Vancomycin 750mg/D5W 275ml IVPB SCH ×6 (15:14→21:27)
[2017-01-16] MEDS: Cefepime HCl 2 GM in D5W 110 ML IVPB SCH (15:21)
[2017-01-16 16:00] VITALS: BP 97/58
--- NOTE | 2017-01-16 16:11 | Cardiology Report ---
APPROVED REPORT EXAM: Two-dimensional and M-mode echocardiogram with Doppler and color Doppler. INDICATION Atrial Fibrillation M-Mode DIMENSIONS IVSd1.2 (0.7-1.1cm)Left Atrium (MM)5.3 (1.6-4.0cm) LVDd3.5 (3.5-5.6cm)Aortic Root2.8 (2.0-3.7cm) PWd1.6 (0.7-1.1cm)Aortic Cusp Exc.1.7 (1.5-2.0cm) LVDs2.5 (2.5-4.0cm) PWs2.0 cm Normal left ventricular chamber size, systolic function and wall motion. Left ventricular ejection fraction estimated to be 55-60 %. Mild left ventricular hypertrophy. No evidence of pericardial effusion. Moderate left atrial enlargement. Mild right atrial enlargement. Right ventricular chamber size is within normal limits. Focal aortic valve sclerosis with adequate cusp excursion. Mitral valve clip noted with normal function. Mitral annulus and aortic root calcification. Pulmonic valve not well visualized. Normal tricuspid valve structure. IVC at normal size with physiologic collapse. A color flow and spectral Doppler study was performed and revealed: Mild aortic regurgitation. Mild-moderate mitral regurgitation( eccentric jet). Peak mitral valve diastolic gradient of 14 mmHg and a mean gradient of 5 mmHg. Cannot determine left ventricular diastolic function by mitral diastolic velocities due to atrial fibrillation. Mild to moderate tricuspid regurgitation. Tricuspid systolic velocities suggests peak right ventricular systolic pressure of 36 mmHg, consistent with mild pulmonary hypertension. 2 jets of moderate pulmonic regurgitation noted.
--- NOTE | 2017-01-16 16:22 | Cardiology Report ---
APPROVED REPORT EKG Measurement Heart [id number] Atrial fibrillation Nonspecific T wave abnormality Abnormal ECG
--- NOTE | 2017-01-16 16:44 | Cardiology Report ---
APPROVED REPORT EKG Measurement Heart [id number] Atrial flutter with variable AV block Abnormal ECG
--- NOTE | 2017-01-16 17:22 | Infectious Diseases Prog Note ---
Assessment/Plan Assessment/Plan ASSESSMENT: The patient is a 71-year-old female w Fever , SP Shortness of breath History of healthcare associated pneumonia Rule out bacteremia UCx : GNR :asymptomatic ?JUANA , Cr increasing Atrial flutter. CHF. Hypertension. History of breast reduction surgery. Gout. Borderline diabetes. Depression. Anemia. Status post cardiac cath and mitral valve clip at [facility] ten days prior to admission PLAN: cont on vancomycin and cefepime d# 2( May DC Vanco if Cr increased further ) Monitor blood culture Monitor sputum and urine culture. Monitor chest x-ray. Monitor liver function tests Echo :P. Subjective Allergies: Coded Allergies: No Known Allergies (Unverified , 01/14/17) Subjective comfortable Objective Vital Signs Last 24 Hour Vital Signs Date Time Temp Pulse Resp B/P Pulse Ox O2 Delivery O2 Flow Rate FiO2 01/16/17 16:00 97.7 80 20 97/58 99 Room Air 01/16/17 12:00 91 01/16/17 12:00 97.3 70 21 91/56 95 Nasal Cannula 2.0 01/16/17 09:00 65 88/45 01/16/17 08:00 97.2 77 21 86/48 98 Nasal Cannula 2.0 01/16/17 04:33 90 01/16/17 00:00 98.1 74 20 115/55 Room Air 01/15/17 20:41 82 100/57 01/15/17 20:00 98.4 87 22 100/52 99 Room Air 01/15/17 20:00 97 Height (Feet): 5 Height (Inches): 0.00 Weight (Pounds): 153 HEENT: atraumatic Respiratory/Chest: no respiratory distress Cardiovascular: regularly irregular Abdomen: no organomegaly Microbiology Date/Time Source Procedure Growth Status 01/14/17 22:00 Blood Blood Culture - Preliminary NO GROWTH AFTER 24 HOURS Resulted 01/14/17 21:50 Blood Blood Culture - Preliminary NO GROWTH AFTER 24 HOURS Resulted 01/15/17 14:00 Sputum Gram Stain - Final Resulted 01/15/17 14:00 Sputum Sputum Culture - Preliminary NO GROWTH AFTER 24 HOURS Resulted 01/14/17 21:55 Urine,Clean Catch Urine Culture - Preliminary Gram Negative Bacillus 1 Resulted Laboratory Tests Test 01/16/17 07:30 White Blood Count 6.7 K/UL (4.8-10.8) Red Blood Count 4.08 M/UL (4.20-5.40) L Hemoglobin 11.8 G/DL (12.0-16.0) L Hematocrit 35.3 % (37.0-47.0) L Mean Corpuscular Volume 87 FL (80-99) Mean Corpuscular Hemoglobin 29.0 PG (27.0-31.0) Mean Corpuscular Hemoglobin Concent 33.5 G/DL (32.0-36.0) Red Cell Distribution Width 13.7 % (11.6-14.8) Platelet Count 208 K/UL (150-450) Mean Platelet Volume 7.4 FL (6.5-10.1) Neutrophils (%) (Auto) 63.7 % (45.0-75.0) Lymphocytes (%) (Auto) 16.8 % (20.0-45.0) L Monocytes (%) (Auto) 11.2 % (1.0-10.0) H Eosinophils (%) (Auto) 7.4 % (0.0-3.0) H Basophils (%) (Auto) 0.9 % (0.0-2.0) Sodium Level 137 mEQ/L (135-145) Potassium Level 2.7 mEQ/L (3.4-4.9) *L Chloride Level 94 mEQ/L (98-107) L Carbon Dioxide Level 29 mEQ/L (20-30) Anion Gap 14 (5-15) Blood Urea Nitrogen 29 mg/dL (7-23) H Creatinine 1.3 mg/dL (0.5-0.9) H Estimat Glomerular Filtration Rate mL/min (>60) Glucose Level 93 mg/dL (74-106) Calcium Level 9.2 mg/dL (8.6-10.2) Pro-B-Type Natriuretic Peptide 3110 pg/mL (0-125) H Current Medications Medications (Trade) Dose Ordered Sig/Jaz Route PRN Reason Start Time Stop Time Status Last Admin Dose Admin Acetaminophen (Tylenol) 500 mg Q4H PRN ORAL Mild Pain/Temp > 100.5 01/15/17 08:00 02/14/17 07:59 Allopurinol (Zyloprim) 100 mg THREE TIMES A WEEK ORAL 01/16/17 09:00 02/15/17 08:59 01/16/17 10:23 Amiodarone HCl (Cordarone) 200 mg DAILY ORAL 01/15/17 09:00 02/14/17 08:59 01/15/17 09:02 Aspirin (Ecotrin) 81 mg TWICE A DAY ORAL 01/15/17 09:00 02/14/17 08:59 01/16/17 10:23 Cefepime HCl/ Dextrose (Maxipime/D5W) 110 ml @ 220 mls/hr Q24H IVPB 01/15/17 15:00 01/22/17 14:59 01/16/17 15:21 Dextrose (Dextrose 50%) STAT PRN IV Hypoglycemia 01/14/17 23:30 02/13/17 23:29 Heparin Sodium (Porcine) (Heparin 5000 units/ml) 5,000 units EVERY 12 HOURS SUBQ 01/15/17 09:00 02/14/17 08:59 01/16/17 10:32 Insulin Aspart (NovoLOG) BEFORE MEALS AND HS SUBQ 01/15/17 06:30 02/14/17 06:29 01/15/17 20:44 Metoprolol Tartrate (Lopressor) 50 mg EVERY 12 HOURS ORAL 01/15/17 21:00 02/14/17 20:59 01/15/17 20:41 Potassium Chloride (KCl 10% 40mEq Oral solution) 40 meq ONCE ONCE NG 01/16/17 19:00 01/16/17 19:01 Pregabalin (Lyrica) 75 mg QHS ORAL 01/15/17 21:00 02/14/17 20:59 01/15/17 20:42 Rivaroxaban (Xarelto) 20 mg DAILY ORAL 01/15/17 19:30 02/14/17 19:29 01/16/17 10:23 Temazepam (Restoril) 15 mg BEDTIME ORAL 01/15/17 21:00 01/22/17 20:59 01/15/17 20:41 Thyroid 45 mg 45 mg DAILY@1200 ORAL 01/15/17 12:00 02/14/17 11:59 01/16/17 12:58 Vancomycin HCl 1 ea 1 ea DAILY PRN MISC Per rx protocol 01/15/17 12:00 02/14/17 11:59 Vancomycin HCl/ Dextrose (Vancomycin/D5W) 275 ml @ 183.708 mls/hr Q24H IVPB 01/15/17 21:00 01/20/17 20:59 01/15/17 21:59 SOFIE MORELAND M.D. Jan 16, 2017 17:22
[2017-01-16] MEDS ORDERED: KCl 10% 40mEq/30ml liquid NG ONE (19:00)
--- NOTE | 2017-01-16 19:45 | Cardiology Progress Note ---
Assessment/Plan Assessment/Plan chf acute sytolic afib recurrent s/p cardioversion at [facility] his of haseeb cm resolved MR now s/p darell clip recently dm hyperlipidemia fever at admission uti no obstructive disease on cath in 11/2016 was in afib at dc form [facility] now in afib bp lwer liekly due to diuretic may be alos due to loss oa trial activity is on xarelto more time on amiod and subsequently reattempt at cardioversion in future however ia am highly doubtful that she may remain n sinus so rate control for sure should be attempted need iv abx per id blood cx are neg still dc iv lasix may need some fluid if bp remain low home soon once clear by id Subjective Cardiovascular: Denies: chest pain, irregular heart rate, lightheadedness, palpitations, syncope Respiratory: Denies: orthopnea, shortness of breath Gastrointestinal/Abdominal: Denies: abdominal pain Genitourinary: Denies: burning Objective Last 24 Hour Vital Signs Date Time Temp Pulse Resp B/P Pulse Ox O2 Delivery O2 Flow Rate FiO2 01/16/17 16:00 97 01/16/17 16:00 97.7 80 20 97/58 99 Room Air 01/16/17 12:00 91 01/16/17 12:00 97.3 70 21 91/56 95 Nasal Cannula 2.0 01/16/17 09:00 65 88/45 01/16/17 08:00 97.2 77 21 86/48 98 Nasal Cannula 2.0 01/16/17 04:33 90 01/16/17 00:00 98.1 74 20 115/55 Room Air 01/15/17 20:41 82 100/57 01/15/17 20:00 98.4 87 22 100/52 99 Room Air 01/15/17 20:00 97 General Appearance: alert, other - walkign in arana Neck: supple Cardiovascular: irregularly irregular Respiratory/Chest: lungs clear, normal breath sounds Abdomen: normal bowel sounds, non tender, soft Extremities: no swelling Intake and Output 01/15/17 01/16/17 19:00 07:00 Intake Total 571 ml 396.000 ml Output Total 900 ml Balance 571 ml -504.000 ml Intake Oral 560 ml IV Total 11 ml 396.000 ml Output Urine Total 900 ml # Voids 4 3 Laboratory Tests Test 01/16/17 07:30 White Blood Count 6.7 K/UL (4.8-10.8) Red Blood Count 4.08 M/UL (4.20-5.40) L Hemoglobin 11.8 G/DL (12.0-16.0) L Hematocrit 35.3 % (37.0-47.0) L Mean Corpuscular Volume 87 FL (80-99) Mean Corpuscular Hemoglobin 29.0 PG (27.0-31.0) Mean Corpuscular Hemoglobin Concent 33.5 G/DL (32.0-36.0) Red Cell Distribution Width 13.7 % (11.6-14.8) Platelet Count 208 K/UL (150-450) Mean Platelet Volume 7.4 FL (6.5-10.1) Neutrophils (%) (Auto) 63.7 % (45.0-75.0) Lymphocytes (%) (Auto) 16.8 % (20.0-45.0) L Monocytes (%) (Auto) 11.2 % (1.0-10.0) H Eosinophils (%) (Auto) 7.4 % (0.0-3.0) H Basophils (%) (Auto) 0.9 % (0.0-2.0) Sodium Level 137 mEQ/L (135-145) Potassium Level 2.7 mEQ/L (3.4-4.9) *L Chloride Level 94 mEQ/L (98-107) L Carbon Dioxide Level 29 mEQ/L (20-30) Anion Gap 14 (5-15) Blood Urea Nitrogen 29 mg/dL (7-23) H Creatinine 1.3 mg/dL (0.5-0.9) H Estimat Glomerular Filtration Rate mL/min (>60) Glucose Level 93 mg/dL (74-106) Calcium Level 9.2 mg/dL (8.6-10.2) Pro-B-Type Natriuretic Peptide 3110 pg/mL (0-125) H Microbiology Date/Time Source Procedure Growth Status 01/14/17 22:00 Blood Blood Culture - Preliminary NO GROWTH AFTER 24 HOURS Resulted 01/14/17 21:50 Blood Blood Culture - Preliminary NO GROWTH AFTER 24 HOURS Resulted 01/15/17 14:00 Sputum Gram Stain - Final Resulted 01/15/17 14:00 Sputum Sputum Culture - Preliminary NO GROWTH AFTER 24 HOURS Resulted 01/14/17 21:55 Urine,Clean Catch Urine Culture - Preliminary Gram Negative Bacillus 1 Resulted ASHWINI WOODS Jan 16, 2017 19:45
[2017-01-16 20:00] VITALS: BP 95/53
[2017-01-16] MEDS ORDERED: NS 250 ML IVPB ONE (20:00)
[2017-01-16] MEDS: Lyrica 75mg cap ORAL SCH (21:29)
[2017-01-17] VITALS (7 sets, daily range): BP systolic 90–105; BP diastolic 52–64
[2017-01-17] MEDS: NovoLOG Insulin Flexpen SUBQ SCH ×3 (06:30→21:00)
[2017-01-17] MEDS: Metoprolol 25mg tab ORAL SCH (09:00)
--- NOTE | 2017-01-17 09:33 | Infectious Diseases Prog Note ---
Assessment/Plan Assessment/Plan ASSESSMENT: The patient is a 71-year-old female w Fever , SP Shortness of breath IMPROVED Healthcare associated pneumonia Scx: Nl lisandra Rule out bacteremia UCx : GNR and EColi : asymptomatic ?JUANA , Cr increasing Atrial flutter. CHF. Hypertension. History of breast reduction surgery. Gout. Borderline diabetes. Depression. Anemia. Status post cardiac cath and mitral valve clip at [facility] ten days prior to admission PLAN: cont on cefepime d# 3 / 7 , ok to DC pt w cont of AB Rx , DC Vanco d# 3 Monitor blood culture Monitor urine culture. Monitor chest x-ray. Monitor liver function tests Echo :P. Subjective Constitutional: Denies: anorexia, chills, drenching sweats, fatigue, fever, no symptoms, other Allergies: Coded Allergies: No Known Allergies (Unverified , 01/14/17) Subjective comfortable Objective Vital Signs Last 24 Hour Vital Signs Date Time Temp Pulse Resp B/P Pulse Ox O2 Delivery O2 Flow Rate FiO2 01/17/17 04:00 97.0 85 18 90/52 95 Room Air 2.0 01/17/17 04:00 99 01/17/17 00:00 111 01/17/17 00:00 97.0 94 20 98/53 98 Room Air 2.0 01/16/17 23:21 94 98/57 01/16/17 20:00 109 01/16/17 20:00 97.0 91 20 95/53 96 Room Air 2.0 01/16/17 16:00 97 01/16/17 16:00 97.7 80 20 97/58 99 Room Air 01/16/17 12:00 91 01/16/17 12:00 97.3 70 21 91/56 95 Nasal Cannula 2.0 Height (Feet): 5 Height (Inches): 0.00 Weight (Pounds): 153 HEENT: anicteric Respiratory/Chest: normal breath sounds Cardiovascular: regular rhythm Abdomen: no mass Microbiology Date/Time Source Procedure Growth Status 01/14/17 22:00 Blood Blood Culture - Preliminary NO GROWTH AFTER 48 HOURS Resulted 01/14/17 21:50 Blood Blood Culture - Preliminary NO GROWTH AFTER 48 HOURS Resulted 01/15/17 14:00 Sputum Gram Stain - Final Complete 01/15/17 14:00 Sputum Sputum Culture - Final NORMAL UPPER RESPIRATORY LISANDRA PRESENT Complete 01/14/17 21:55 Urine,Clean Catch Urine Culture - Preliminary Escherichia Coli Gram Negative Bacillus 1 Resulted 01/15/17 01:30 Rectum VRE Culture - Final NO VANCOMYCIN RESISTANT ENTEROCOCCUS ... Complete Current Medications Medications (Trade) Dose Ordered Sig/Jaz Route PRN Reason Start Time Stop Time Status Last Admin Dose Admin Acetaminophen (Tylenol) 500 mg Q4H PRN ORAL Mild Pain/Temp > 100.5 01/15/17 08:00 02/14/17 07:59 Allopurinol (Zyloprim) 100 mg THREE TIMES A WEEK ORAL 01/16/17 09:00 02/15/17 08:59 01/16/17 10:23 Amiodarone HCl (Cordarone) 200 mg DAILY ORAL 01/15/17 09:00 02/14/17 08:59 01/15/17 09:02 Aspirin (Ecotrin) 81 mg TWICE A DAY ORAL 01/15/17 09:00 02/14/17 08:59 01/16/17 18:28 Cefepime HCl/ Dextrose (Maxipime/D5W) 110 ml @ 220 mls/hr Q24H IVPB 01/15/17 15:00 01/22/17 14:59 01/16/17 15:21 Dextrose (Dextrose 50%) STAT PRN IV Hypoglycemia 01/14/17 23:30 02/13/17 23:29 Furosemide (Lasix) 20 mg DAILY ORAL 01/18/17 09:00 02/17/17 08:59 Heparin Sodium (Porcine) (Heparin 5000 units/ml) 5,000 units EVERY 12 HOURS SUBQ 01/15/17 09:00 02/14/17 08:59 01/16/17 21:31 Insulin Aspart (NovoLOG) BEFORE MEALS AND HS SUBQ 01/15/17 06:30 02/14/17 06:29 01/16/17 21:32 Metoprolol Tartrate (Lopressor) 50 mg EVERY 12 HOURS ORAL 01/15/17 21:00 02/14/17 20:59 01/16/17 23:21 Pregabalin (Lyrica) 75 mg QHS ORAL 01/15/17 21:00 02/14/17 20:59 01/16/17 21:29 Rivaroxaban (Xarelto) 20 mg DAILY ORAL 01/15/17 19:30 02/14/17 19:29 01/16/17 10:23 Temazepam (Restoril) 15 mg BEDTIME ORAL 01/15/17 21:00 01/22/17 20:59 01/16/17 21:29 Thyroid 45 mg 45 mg DAILY@1200 ORAL 01/15/17 12:00 02/14/17 11:59 01/16/17 12:58 Vancomycin HCl 1 ea 1 ea DAILY PRN MISC Per rx protocol 01/15/17 12:00 02/14/17 11:59 Vancomycin HCl/ Dextrose (Vancomycin/D5W) 275 ml @ 183.708 mls/hr Q24H IVPB 01/15/17 21:00 01/20/17 20:59 01/16/17 21:27 SOFIE MORELAND M.D. Jan 17, 2017 09:33
[2017-01-17] MEDS: Amiodarone 200mg tab ORAL SCH (10:05)
[2017-01-17] MEDS: Xarelto 10mg tab ORAL SCH (10:06)
[2017-01-17] MEDS: Aspirin EC 81mg tab ORAL SCH (10:06)
[2017-01-17] MEDS: Heparin 5000 units/ml inj SUBQ SCH (10:12)
[2017-01-17 11:26] LABS: ALANINE AMINOTRANSFERASE 41 U/L (3-33); ALBUMIN/GLOBULIN RATIO 1.3 (1.0-2.7); ASPARTATE AMINO TRANSFERASE 15 U/L (5-40); CALCIUM 9.4 mg/dL (8.6-10.2); CARBON DIOXIDE 28 mEQ/L (20-30); CREATININE 1.3 mg/dL (0.5-0.9); HEMOLYSIS 2; TOTAL PROTEIN 5.9 g/dL (6.6-8.7)
[2017-01-17 11:31] LABS: ANION GAP 9 (5-15); CHLORIDE 100 mEQ/L (98-107); POTASSIUM 4.6 mEQ/L (3.4-4.9); SODIUM 137 mEQ/L (135-145)
[2017-01-17] MEDS ORDERED: XARELTO10 MG ORAL (15:22)
[2017-01-17] MEDS: Cefepime HCl 2 GM in D5W 110 ML IVPB SCH (15:32)
[2017-01-17] MEDS ORDERED: Acetaminophen 500mg (ES) tab ORAL PRN (17:00)
--- NOTE | 2017-01-17 20:16 | Cardiology Progress Note ---
Assessment/Plan Assessment/Plan chf acute sytolic afib recurrent s/p cardioversion at [facility] his of [place] cm resolved MR now s/p darell clip recently dm hyperlipidemia fever at admission uti no obstructive disease on cath in 11/2016 was in afib at dc form [facility] now in afib is on xarelto more time on amiod and subsequently reattempt at cardioversion in future however ia am highly doubtful that she may remain n sinus so rate control for sure should be attempted need iv abx per id blood cx are neg still echo repor tneg po lasix as of tomrreow home soon once clear by id Subjective Cardiovascular: Denies: chest pain, lightheadedness Respiratory: Denies: shortness of breath - had soem earleir which rsolved spont Gastrointestinal/Abdominal: Denies: abdominal pain Genitourinary: Denies: burning Objective Last 24 Hour Vital Signs Date Time Temp Pulse Resp B/P Pulse Ox O2 Delivery O2 Flow Rate FiO2 01/17/17 16:50 91 01/17/17 16:00 97.9 101 21 105/54 98 Room Air 01/17/17 12:00 91 01/17/17 12:00 97.2 112 20 91/64 99 Room Air 01/17/17 09:58 97.7 93 20 92/54 96 Room Air 01/17/17 09:00 93 92/54 01/17/17 08:00 97.7 93 18 92/54 96 Room Air 01/17/17 08:00 93 01/17/17 04:00 97.0 85 18 90/52 95 Room Air 2.0 01/17/17 04:00 99 01/17/17 00:00 111 01/17/17 00:00 97.0 94 20 98/53 98 Room Air 2.0 01/16/17 23:21 94 98/57 General Appearance: no apparent distress, alert Neck: supple Cardiovascular: irregularly irregular Respiratory/Chest: lungs clear, normal breath sounds Abdomen: normal bowel sounds, non tender, soft Extremities: no swelling Intake and Output 01/16/17 01/17/17 18:59 06:59 Intake Total 600 ml Output Total 2100 ml Balance 600 ml -2100 ml Intake Oral 600 ml Output Urine Total 2100 ml # Voids 3 1 Laboratory Tests Test 01/17/17 10:39 Sodium Level 137 mEQ/L (135-145) Potassium Level 4.6 mEQ/L (3.4-4.9) # Chloride Level 100 mEQ/L (98-107) Carbon Dioxide Level 28 mEQ/L (20-30) Anion Gap 9 (5-15) Blood Urea Nitrogen 29 mg/dL (7-23) H Creatinine 1.3 mg/dL (0.5-0.9) H Estimat Glomerular Filtration Rate mL/min (>60) Glucose Level 117 mg/dL (74-106) H Calcium Level 9.4 mg/dL (8.6-10.2) Total Bilirubin 0.4 mg/dL (0.0-1.2) Aspartate Amino Transf (AST/SGOT) 15 U/L (5-40) Alanine Aminotransferase (ALT/SGPT) 41 U/L (3-33) H Alkaline Phosphatase 77 U/L (35-104) Total Protein 5.9 g/dL (6.6-8.7) L Albumin 3.4 g/dL (3.5-5.2) L Globulin 2.5 g/dL Albumin/Globulin Ratio 1.3 (1.0-2.7) Microbiology Date/Time Source Procedure Growth Status 01/14/17 22:00 Blood Blood Culture - Preliminary NO GROWTH AFTER 48 HOURS Resulted 01/14/17 21:50 Blood Blood Culture - Preliminary NO GROWTH AFTER 48 HOURS Resulted 01/15/17 14:00 Sputum Gram Stain - Final Complete 01/15/17 14:00 Sputum Sputum Culture - Final NORMAL UPPER RESPIRATORY NORBERTO PRESENT Complete 01/15/17 01:30 Nasal Nares Left MRSA Culture - Final NO METHICILLIN RESISTANT STAPH AUREUS... Complete 01/14/17 21:55 Urine,Clean Catch Urine Culture - Preliminary Escherichia Coli Gram Negative Bacillus 1 Resulted 01/15/17 01:30 Rectum VRE Culture - Final NO VANCOMYCIN RESISTANT ENTEROCOCCUS ... Complete ASHWINI WOODS Jan 17, 2017 20:16
[2017-01-17] MEDS ORDERED: Heparin 5000 units/ml inj SUBQ SCH (21:00)
[2017-01-17] MEDS ORDERED: Lyrica 75mg cap ORAL SCH (21:00)
[2017-01-17] MEDS: Metoprolol 50mg tab ORAL SCH (21:00)
[2017-01-18] VITALS: BP 106/71
[2017-01-18 04:00] VITALS: BP 108/71
[2017-01-18] MEDS: NovoLOG Insulin Flexpen SUBQ SCH ×2 (06:26→11:30)
[2017-01-18 07:45] VITALS: BP 97/66
--- NOTE | 2017-01-18 07:49 | Pulmonology Progress Note ---
Assessment/Plan Assessment/Plan ASSESSMENT CHF acute on chronic systolic/ diastolic likely HCAP A fib , recurrent, s/p cardioversion at [facility] his of [place] CM, resolved MR , s/p Mitro clip recently UTI with Pseudomonas and E coli HCAP JUANA ( likely 2 to diuretics overuse) anemia mild pulmonary HTN DM hyperlipidemia PLAN OF CARE [facility] floor cardio follows ECHO with EF 55-60% and RVSP of 36 c/w mild pulmonary HTN, evidence of mild to moderate MR remains in A fib, chronic rate control with Amiodarone and BB a/coagulation wit Xarelto last cath 11/2016 no evidence of obstructive disease- per cardio troponin negative pro BNP trending down, fup CXR with improvement in interstitial edema off Lasix IV, on po daily, small dose monitor renal parameters, lytes, avoid nephrotoxic O2 HHN prn pulse ox stable on RA abx, ID follows urine cx + Pseudomonas, E coli ( colony count 20-30 only), sputum cx negative, blood cx preliminary negative BS management with SS of insulin DVT prophylaxis HH at baseline, no trend down dc today fup with PMD and cardio case discussed and evaluated by supervising physician Subjective Allergies: Coded Allergies: No Known Allergies (Unverified , 01/14/17) Subjective on [facility] floor denies chest pain, SOB, palpitations ambulates afebrile, no leukocytosis pulse ox stable on RA creat -1.3 Objective Last 24 Hour Vital Signs Date Time Temp Pulse Resp B/P Pulse Ox O2 Delivery O2 Flow Rate FiO2 01/18/17 07:45 97.5 75 14 97/66 96 Room Air 01/18/17 04:00 96.8 94 20 108/71 95 Room Air 01/18/17 00:00 97.9 98 20 106/71 96 Room Air 01/17/17 20:00 98.2 99 20 100/57 95 Room Air 01/17/17 16:50 91 01/17/17 16:00 97.9 101 21 105/54 98 Room Air 01/17/17 12:00 91 01/17/17 12:00 97.2 112 20 91/64 99 Room Air 01/17/17 09:58 97.7 93 20 92/54 96 Room Air 01/17/17 09:00 93 92/54 01/17/17 08:00 97.7 93 18 92/54 96 Room Air 01/17/17 08:00 93 Intake and Output 01/17/17 01/18/17 19:00 07:00 Intake Total 480 ml 250 ml Balance 480 ml 250 ml Intake Oral 480 ml 250 ml # Voids 2 2 General Appearance: WD/WN, no acute distress HEENT: normocephalic, atraumatic, anicteric, mucous membranes moist, PERRL Respiratory/Chest: chest wall non-tender, lungs clear, no respiratory distress , no accessory muscle use Cardiovascular: normal peripheral pulses, normal rate, irregularly irregular Abdomen: normal bowel sounds, soft, non tender, non distended Genitourinary: normal external genitalia Extremities: no cyanosis, no edema, pedal pulses normal Neurologic/Psychiatric: no motor/sensory deficits, alert, oriented x 3, responsive, normal mood/affect Musculoskeletal: normal muscle bulk Microbiology Date/Time Source Procedure Growth Status 01/15/17 14:00 Sputum Gram Stain - Final Complete 01/15/17 14:00 Sputum Sputum Culture - Final NORMAL UPPER RESPIRATORY NORBERTO PRESENT Complete Laboratory Tests 01/17/17 10:39: Sodium Level 137, Potassium Level 4.6#, Chloride Level 100, Carbon Dioxide Level 28, Anion Gap 9, Blood Urea Nitrogen 29H, Creatinine 1.3H, Estimat Glomerular Filtration Rate , Glucose Level 117H, Calcium Level 9.4, Total Bilirubin 0.4, Aspartate Amino Transf (AST/SGOT) 15, Alanine Aminotransferase ( ALT/SGPT) 41H, Alkaline Phosphatase 77, Total Protein 5.9L, Albumin 3.4L, Globulin 2.5, Albumin/Globulin Ratio 1.3 Current Medications Medications (Trade) Dose Ordered Sig/Jaz Route PRN Reason Start Time Stop Time Status Last Admin Dose Admin Acetaminophen (Tylenol) 500 mg Q4H PRN ORAL Mild Pain/Temp > 100.5 01/17/17 17:00 02/16/17 16:59 Allopurinol (Zyloprim) 100 mg THREE TIMES A WEEK ORAL 01/18/17 09:00 02/17/17 08:59 Amiodarone HCl (Cordarone) 200 mg DAILY ORAL 01/18/17 09:00 02/17/17 08:59 Aspirin (Ecotrin) 81 mg DAILY ORAL 01/18/17 09:00 02/17/17 08:59 Cefepime HCl/ Dextrose (Maxipime/D5W) 110 ml @ 220 mls/hr Q24H IVPB 01/18/17 15:00 01/25/17 14:59 Dextrose (Dextrose 50%) STAT PRN IV Hypoglycemia 01/17/17 17:00 02/16/17 16:59 Furosemide (Lasix) 20 mg DAILY ORAL 01/18/17 09:00 02/17/17 08:59 Insulin Aspart (NovoLOG) BEFORE MEALS AND HS SUBQ 01/17/17 21:00 02/16/17 20:59 Metoprolol Tartrate (Lopressor) 50 mg EVERY 12 HOURS ORAL 01/17/17 21:00 02/16/17 20:59 Pregabalin (Lyrica) 75 mg QHS ORAL 01/17/17 21:00 02/16/17 20:59 01/17/17 21:01 Rivaroxaban (Xarelto) 20 mg DAILY ORAL 01/18/17 09:00 02/17/17 08:59 Temazepam (Restoril) 15 mg BEDTIME ORAL 01/17/17 21:00 01/24/17 20:59 01/17/17 21:00 Thyroid (Shelby Thyroid) 45 mg DAILY@1200 ORAL 01/18/17 12:00 02/17/17 11:59 Thomas ([facility])Celi NP Jan 18, 2017 07:49
[2017-01-18] MEDS ORDERED: Aspirin EC 81mg tab ORAL SCH (09:00)
[2017-01-18] MEDS ORDERED: Xarelto 10mg tab ORAL SCH (09:00)
[2017-01-18] MEDS: Metoprolol 50mg tab ORAL SCH (09:00)
[2017-01-18] MEDS ORDERED: Amiodarone 200mg tab ORAL SCH (09:00)
[2017-01-18] MEDS ORDERED: Allopurinol 100mg Tab ORAL SCH (09:00)
[2017-01-18] MEDS ORDERED: FUROSEMIDE20 M1 ORAL (12:01)
[2017-01-18] MEDS ORDERED: PACERONE200 MG ORAL (12:01)
[2017-01-18] MEDS ORDERED: LEVAQUIN750 MG ORAL (12:04)
[2017-01-18 12:44] VITALS: BP 118/60
[2017-01-18] MEDS ORDERED: NS 275ml ONE (13:29)
[2017-01-18] MEDS ORDERED: Tubing IV Secondary IV ONE (13:29)
[2017-01-18] MEDS ORDERED: Cefepime HCl 2 GM in D5W 110 ML IVPB SCH (15:00)
--- NOTE | 2017-01-21 23:31 | Discharge Summary 2 SIG ---
DATE OF ADMISSION: 01/14/2017 DATE OF DISCHARGE: 01/18/2017 The patient is admitted under Dr. Thomas. CONSULTANTS: 1. Vin Nova M.D. (College Intern). 2. Teo Schuler M.D. (Infectious Disease). BRIEF HOSPITAL COURSE: The patient is a 71-year-old female with past medical history significant for childhood rheumatic heart fever, mitral insufficiency with the recent clip of mitral wall at [facility], borderline diabetes, history of smoking, and hypothyroidism, presented to the emergency department with chief complaint of fever, cough, dyspnea, and thick phlegm. She also complained of some chest pain and tightness. Chest x-ray revealed mild interstitial congestion. The patient was afebrile. Stable hemoglobin and hematocrit. Renal parameter is stable. ProBNP was 6286. Slightly elevated AST and ALT, AST 86 and ALT 98. Urinalysis shows evidence of possible urinary tract infection. Urine culture revealed E. coli and Pseudomonas aeruginosa with a colony count 20 to 30 each of them. Sputum culture was negative. Blood culture was negative. ID closely followed. ID recommended to change intravenous antibiotics to oral prior to discharge to complete the course. The patient is afebrile. No leukocytosis. Cardiology closely followed. Echocardiogram revealed ejection fraction of 55% to 60% and right ventricular systolic pressure of 36 consistent with mild pulmonary hypertension and evidence of [id number] mitral regurgitation. The patient remains in atrial fibrillation, which is chronic. Rate controlled with amiodarone and beta-amandeep and rate was controlled. Anticoagulation was restarted with Xarelto. Last cardiac catheterization done in November 2016 revealed no evidence of obstructive disease per chief of police, who reviewed [facility] records. Troponin was negative. ProBNP was trending down. Follow up chest x-ray shows improvement in interstitial edema. The patient was off IV Lasix and started on oral daily, small dose of Lasix. Monitor renal parameters and electrolytes and avoid nephrotoxics. Supplemental oxygen and pulmonary toilet provided as needed and oxygen titrated to keep saturation above 92%. Pulse oximetry prior to discharge stable on room air. Blood sugar was managed with sliding scale of insulin. DVT prophylaxis provided. Hemoglobin and hematocrit at the baseline. No trend down. The patient has a chief of police, Dr. Malagon that she follows. LFTs trending down to normal. The patient was stable for discharge. DISCHARGE DIAGNOSES: Includes: 1. Congestive heart failure, acute on chronic systolic/diastolic. 2. Atrial fibrillation, recurrent, status post cardioversion at [facility]. 3. History of takotsubo cardiomyopathy, resolved. 4. Mitral regurgitation, status post mitral clip (recent). 5. Urinary tract infection with Pseudomonas and Escherichia coli. 6. Healthcare-associated pneumonia. 7. Acute kidney injury likely secondary to diuretic over use, resolved. 8. Anemia. 9. Mild pulmonary hypertension. 10. Borderline diabetes. 11. Hyperlipidemia. DISCHARGE MEDICATIONS: See medication reconciliation list. DISCHARGE INSTRUCTIONS: The patient is discharged home. Follow up with the chief of police, Dr. Malagon and PMD. Ruddy Thomas M.D. I have been assigned to dictate discharge summary on this account and I was not involved in the patient's management. Celi murciaYovanny perla DR: CHRISTIAN JOB#: [id number] CC:
== END 2017-01-18 13:30 | disposition home or self-care (01) | DRG 139 ==
LOC: EDBD 20:36 → EMR 21:20 → 2E 23:13 → EDBEDREQ 01-15 00:36 → 4E 01-17 16:40
DX: J18.9 Pneumonia, unspecified organism (principal); N17.9 Acute kidney failure, unspecified; I50.43 Acute on chronic combined systolic (congestive) and diastolic (congestive) heart failure; N39.0 Urinary tract infection, site not specified; I48.92 Unspecified atrial flutter; I27.2 Other secondary pulmonary hypertension; E11.9 Type 2 diabetes mellitus without complications; B96.20 Unspecified Escherichia coli [E. coli] as the cause of diseases classified elsewhere; I48.91 Unspecified atrial fibrillation; E78.5 Hyperlipidemia, unspecified; I05.1 Rheumatic mitral insufficiency; E03.9 Hypothyroidism, unspecified; Z87.891 Personal history of nicotine dependence; M48.00 Spinal stenosis, site unspecified; F32.9 Major depressive disorder, single episode, unspecified; B96.5 Pseudomonas (aeruginosa) (mallei) (pseudomallei) as the cause of diseases classified elsewhere; D64.9 Anemia, unspecified
CPT/HCPCS: 36415; 71010; 80048; 80053; 81003; 82248; 82550; 82553; 82962; 83605; 83880; 84484; 85025; 87040; 87070; 87081; 87086; 87181; 87205; 93005; 93306; J1815